=== PATIENT | female | born 1935 | race Hispanic/Latino ===

== ENCOUNTER → 2018-04-21 | Outpatient (CLI) | payer OTHER, MEDICARE | END | disposition home or self-care (01) | LOC: OIH 10:56 | PROVIDERS: ATTEND Internal Medicine | DX: I70.0 Atherosclerosis of aorta (principal); I10 Essential (primary) hypertension; I71.4 Abdominal aortic aneurysm, without rupture; J84.10 Pulmonary fibrosis, unspecified; E27.0 Other adrenocortical overactivity; D86.0 Sarcoidosis of lung | CPT/HCPCS: 71046 ==

== ENCOUNTER → 2018-09-23 | Outpatient (CLI) | payer OTHER, MEDICARE | END | disposition home or self-care (01) | LOC: OIH 09:21 | PROVIDERS: ATTEND Internal Medicine | DX: R05 Cough (principal); I70.0 Atherosclerosis of aorta; M47.815 Spondylosis without myelopathy or radiculopathy, thoracolumbar region | CPT/HCPCS: 71046 ==

== ENCOUNTER → 2019-02-12 | Outpatient (CLI) | payer OTHER, MEDICARE | END | disposition home or self-care (01) | LOC: RAH 08:36 | PROVIDERS: ATTEND Internal Medicine | DX: K59.00 Constipation, unspecified (principal); I70.0 Atherosclerosis of aorta; K57.90 Diverticulosis of intestine, part unspecified, without perforation or abscess without bleeding; M41.50 Other secondary scoliosis, site unspecified | CPT/HCPCS: 74176 ==

== ENCOUNTER → 2019-02-17 | Outpatient (CLI) | payer OTHER, MEDICARE | END | disposition home or self-care (01) | LOC: RAH 09:08 | PROVIDERS: ATTEND Internal Medicine | DX: E27.9 Disorder of adrenal gland, unspecified (principal) | CPT/HCPCS: 76856 ==

== ENCOUNTER → 2019-06-12 | Outpatient (CLI) | payer OTHER, MEDICARE | END | disposition home or self-care (01) | LOC: OIH 09:06 | PROVIDERS: ATTEND Internal Medicine | DX: I10 Essential (primary) hypertension (principal); M47.814 Spondylosis without myelopathy or radiculopathy, thoracic region; I70.0 Atherosclerosis of aorta | CPT/HCPCS: 71046 ==

== ENCOUNTER 2024-06-01 13:07 | Observation (INO) | payer OTHER, MEDICARE ==
[~2024-06-01] VITALS: Ht 154.9 cm; Wt 49.9 kg
[2024-06-01] MEDS ORDERED: METF-910 PO (13:19)
[2024-06-01] MEDS ORDERED: LOSA50TA64 PO (13:19)
[2024-06-01] MEDS ORDERED: ROSU10TA72 PO (13:19)
[2024-06-01] MEDS ORDERED: AMLO2.5T4 PO (13:19)
[2024-06-01] MEDS ORDERED: MELO-108 PO (13:19)
--- NOTE | 2024-06-01 13:21 | ERN ---
General Chief Complaint: Shortness of Breath Stated Complaint: SOB Time Seen by MD: 13:21 Source: family, EMS History of Present Illness Initial Comments 88 y/o female presents to the ED by EMS due to SOB. Per EMS pt O2 at 92% on 2L of oxygen. Family members report diarrhea but deny further associated symptoms. 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 PMHx HTN, DM, A- fib Allergies: Coded Allergies: No Known Drug Allergies (Unverified Allergy, Unknown, 06/01/24) Home Meds Reported Medications Metformin HCl (Metformin HCl ER) 500 Mg Tab.er.24h, 1 TAB PO BID for 30 Days, #60 TAB 0 Refills 06/01/24 Losartan Potassium (Losartan Potassium) 50 Mg Tablet, 1 TAB PO DAILY for 30 Days, #30 TAB 0 Refills 06/01/24 Rosuvastatin Calcium (Rosuvastatin Calcium) 10 Mg Tablet, 1 TAB PO HS for 30 Days, #30 TAB 0 Refills 06/01/24 Meloxicam (Meloxicam) 15 Mg Tablet, 1 TAB PO DAILY for 30 Days, #30 TAB 0 Refills 06/01/24 Amlodipine Besylate (Amlodipine Besylate) 2.5 Mg Tablet, 1 TAB PO DAILY for 30 Days, #30 TAB 0 Refills 06/01/24 Past Medical History Past Medical History: A-Fib, Hypertension Past Surgical History: Unknown ROS Dictation Constitutional: Negative for fever,chills, and weight loss Eyes: Negative for injury, pain,redness, and discharge ENT: Negative for injury,pain or swelling Cardiovascular: Negative for chest pain, palpitations, and edema Respiratory: Positive for shortness of breath Negative for cough, and wheezing, Abdomen/GI: Positive for diarrhea Negative for abdominal pain, nausea, vomiting, and constipation Back: Negative for injury and pain : Negative for painful urination, bleeding or discharge MS/Extremity: Negative for injury and deformity Skin: Negative for rash, and discoloration Neuro: Negative for headache, weakness, numbness, tingling, and seizure Psych: Negative for suicide ideation, homicidal ideation, and hallucinations Physical Exam Physical Exam Dictation General: awake, alert, no acute distress Head/Face: Normocephalic, atraumatic Eyes: PERRL, EOMI, normal conjunctiva ENT: oral cavity clear, oral mucosa moist Neck: Normal range of motion, supple Cardiovascular: RRR, normal S1/S2 Respiratory: CTAB, no respiratory distress, no rales or wheezes Abdomen: Soft, non-tender, non-distended, no guarding or rebound. Skin: Warm, dry, normal turgor, no rash MS/Extremity: Pulses equal, no cyanosis, neurovascular intact, FROM Neuro: COAx4, GCS 15 Results Laboratory and Microbiology Lab and Micro Result Laboratory Tests Test 06/01/24 13:22 06/01/24 13:27 06/01/24 15:12 Blood Gas Specimen Type Arterial Arterial Blood pH 7.361 (7.350-7.450) Arterial Blood Partial Pressure CO2 25 mmHg (32-45) L Arterial Blood Partial Pressure O2 92.6 mmHg (83.0-108.0) Arterial Blood HCO3 14.1 mmol/L (21.0-28.0) L Arterial Blood Oxygen Saturation 94.7 % (94.0-98.0) Arterial Blood Base Excess -9.7 mmol/L (-2.0-3.0) L Hemoglobin (Blood Gas) 12.4 g/dL (12.0-16.0) Sodium (Blood Gas) 136 MMOL/L (136-145) Bedside Potassium (Blood Gas) 3.5 MMOL/L (3.4-4.5) Bedside Chloride (Blood Gas) 106 MMOL/L (98-107) Bedside Glucose (Blood Gas) 190 MG/DL (65-95) H Bedside Ionized Calcium (Blood Gas) 1.14 MMOL/L (1.15-1.33) L Bedside Lactic Acid (Blood Gas) 4.50 MMOL/L (0.36-0.75) *H Blood Gas Temperature 37.0 CELSIUS (35.5-37.0) Blood Gas Flow-by 2.00 L/min (0.00-15.00) FiO2 28.0 % Blood Gas Specimen Comment RR 2LNC Influenza Type A Antigen Negative For Type A Influenza Type B Antigen Negative For Type B SARS-CoV-2, RNA, NAAT NEGATIVE SARS CoV-2 White Blood Count 21.5 K/uL (4.8-10.8) H Red Blood Count 4.27 MIL/uL (4.00-5.50) Hemoglobin 12.5 g/dL (12.0-16.0) Hematocrit 37.8 % (36-48) Mean Corpuscular Volume 88.5 fL (79-99) Mean Corpuscular Hemoglobin 29.3 pg (27.0-33.0) Mean Corpuscular Hemoglobin Concent 33.1 g/dL (32.0-36.0) Red Cell Distribution Width 16.0 % (11.0-15.5) H Platelet Count 339 K/uL (130-400) Mean Platelet Volume 10.6 fL (7.5-10.5) H Immature Granulocyte % (Auto) 0.6 % (0-1) Neutrophils (%) (Auto) 86.0 % (40.0-77.0) H Lymphocytes (%) (Auto) 5.8 % (21.0-51.0) L Monocytes (%) (Auto) 7.3 % (3.0-13.0) Eosinophils (%) (Auto) 0.0 % (0.0-8.0) Basophils (%) (Auto) 0.3 % (0.0-5.0) Neutrophils # (Auto) 18.5 K/uL (1.8-7.7) H Lymphocytes # (Auto) 1.2 K/uL (1.0-4.8) Monocytes # (Auto) 1.6 K/uL (0.1-1.0) H Eosinophils # (Auto) 0.01 K/uL (0.00-0.70) Basophils # (Auto) 0.06 K/uL (0.00-0.20) Absolute Immature Granulocyte (auto 0.13 K/uL (0-1) Nucleated Red Blood Cells 0.0 % (0.0-0.19) White Cell Morphology Comment See comments Prothrombin Time 11.3 SEC (9.6-11.6) Prothromb Time International Ratio 1.01 (0.85-1.15) Activated Partial Thromboplast Time 23.8 SEC (26.3-35.5) L Sodium Level 138 mmol/L (136-145) Potassium Level 3.6 mmol/L (3.5-5.1) Chloride Level 103 mmol/L (101-111) Carbon Dioxide Level 19 mmol/L (21-32) L Blood Urea Nitrogen 23 mg/dL (7-18) H Creatinine 1.5 mg/dL (0.5-1.0) H Glomerular Filtration Rate Calc 33 mL/min (>90) Random Glucose 195 mg/dL (70-105) H Total Calcium 8.6 mg/dL (8.5-10.1) Magnesium Level 1.10 mg/dL (1.80-2.40) L Total Bilirubin 0.2 mg/dL (0.2-1.0) Aspartate Amino Transf (AST/SGOT) 19 U/L (10-37) Alanine Aminotransferase (ALT/SGPT) 16 U/L (12-78) Alkaline Phosphatase 101 U/L (50-136) Total Creatine Kinase 59 U/L (21-232) Troponin I High Sensitivity 7 ng/L (4-50) B-Type Natriuretic Peptide 53 pg/mL (0-100) Total Protein 7.0 g/dL (6.0-8.3) Albumin 3.0 g/dL (3.5-5.0) L Triglycerides Level 94 mg/dL (30-200) Cholesterol Level 126 mg/dL (<200) LDL Cholesterol 58 mg/dL (0-99) HDL Cholesterol 59 mg/dL (35-85) Urine Color LIGHT-YELLOW (YELLOW) Urine Appearance CLOUDY (CLEAR) H Urine pH 5.5 (5.0-8.0) Urine Specific [place] 1.007 (1.001-1.031) Urine Protein 20 mg/dL (NEGATIVE) H Urine Glucose (UA) NEGATIVE mg/dL (NEGATIVE) Urine Ketones NEGATIVE mg/dL (NEGATIVE) Urine Occult Blood NEGATIVE (NEGATIVE) Urine Nitrate NEGATIVE (NEGATIVE) Urine Bilirubin NEGATIVE mg/dL (NEGATIVE) Urine Urobilinogen 0.2 mg/dL (0.2-1.0) Urine Leukocyte Esterase NEGATIVE [place]/uL Urine RBC 0-1 /HPF (0-1) Urine WBC 2-5 /HPF (0-1) H Urine Squamous Epithelial Cells RARE /HPF (0-2) Urine Bacteria RARE /HPF (None Seen) Urine Hyaline Casts 2-5 /LPF (0-1 /LPF) H Labs Reviewed?: Yes EKG/XRAY/US/CT/MRI X-RAY Comment REASON: sob ORDERING PHYSICIAN: BRAD COLLINS MD PROCEDURE: CXR1VW - CHEST 1VW CHEST 1VW REASON: sob COMPARISON: 06/12/2019 FINDINGS: Single view of the chest was obtained. Lungs are clear. Heart size is normal. There is no pulmonary vascular congestion. Mediastinum and bony thorax appear unremarkable. IMPRESSION: 1. Normal single view chest x-ray. DICTATED BY: THONY MARTIN MD DATE: 06/01/24 1351 MDM MDM: Differential diagnosis: UTI, viral gastroenteritis, fluid retention, hypoxia Rationale: 88 y/o female presents to the ED by EMS due to SOB. Per EMS pt O2 at 92% on 2L of oxygen. Family members report diarrhea but deny further associated symptoms. 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 PMHx HTN, DM, A-fib Per physical examination patient's abdomen is soft nontender, she appears to be in no acute distress. Patient on 3 L of O2 satting at 97%. Labs obtained indicate elevated WBC at 21.5, BUN and creatinine elevated with no previous labs for comparison, and low magnesium of 1.1. Patient was administered IV fluids and IV magnesium. UA negative for urinary tract infection. Influenza and COVID negative. Chest x-ray normal with no acute abnormalities noted. Family was educated on findings and diagnosis. Case discussed with Dr. Hughes who accepted admission. Previous outside records reviewed: Old ER visits. Risk of complication and/or morbidity or mortality of patient management: None Medications-Per medication reconciliation Need for hospitalization: Patient does meet criteria for hospitalization. Need for emergency major/minor surgery: No There are no social concerns with this patient. Prescription drug management Prescriptions will include symptomatic care Patient's prior external medical records from other ER visits were reviewed by me as indicated. Prior testing and results from previous visits were reviewed. Prior tests were taken into account with medical decision making and resource utilization, independent historian/historians were used to obtain complete medical history. I independently interpreted the test that were performed, results were reviewed by me and considered findings on radiology if ordered. Medical management and examination interpretation discussions were had by me with other qualified healthcare professionals as indicated for the patient's care. ED Course Orders Procedure Category Date Status Time Cbc With Differential LAB 06/01/24 Complete 13:13 Prothrombin Time With LAB 06/01/24 Complete INR 13:13 B-Type Natriuretic LAB 06/01/24 Complete Peptide 13:13 Lipid Panel LAB 06/01/24 Complete 13:13 Chest 1vw RAD 06/01/24 Resulted 13:13 12 Lead Ekg Tracing- EKG 06/01/24 Complete Technical 13:13 Magnesium LAB 06/01/24 Complete 13:13 Creatine Kinase, Total LAB 06/01/24 Complete 13:13 Troponin I High LAB 06/01/24 Complete Sensitivity 13:13 Urinalysis Profile LAB 06/01/24 Complete 13:13 Partial LAB 06/01/24 Complete Thromboplastin Time 13:13 Comprehensive LAB 06/01/24 Complete Metabolic Panel 13:13 Covid Rna Naat LAB 06/01/24 Complete 13:13 Influenza Type A & B, LAB 06/01/24 Complete Rapid 13:13 Arterial Blood Gas + RT 06/01/24 Transmitted 13:18 Arterial Blood Gas LAB 06/01/24 Complete Arterial + 13:22 0.9%Nacl 1000ml (Ns PHA 06/01/24 Complete 1000ml) 15:30 Magnesium 2gm Premix PHA 06/01/24 Complete 50ml (Magnesium 2gm 15:50 Magnesium 2gm Premix PHA 06/01/24 Complete 50ml (Magnesium 2gm 15:52 Current Medications Medications (Trade) Dose Ordered Sig/Aleksandr Route PRN Reason Start Time Stop Time Status Last Admin Dose Admin Magnesium Sulfate 50 ml @ 0 mls/hr PROTOCOL STAT IV 06/01/24 15:50 06/01/24 15:58 DC Magnesium Sulfate 50 ml @ 0 mls/hr PROTOCOL STAT IV 06/01/24 15:52 06/01/24 15:58 DC 06/01/24 16:07 Sodium Chloride 1,000 ml @ 0 mls/hr ONCE ONCE IV 06/01/24 15:30 06/01/24 15:31 DC 06/01/24 16:06 Vital Signs Date Time Temp Pulse Resp B/P (MAP) Pulse Ox O2 Delivery O2 Flow Rate FiO2 06/01/24 16:00 97.5 86 18 117/55 96 Nasal Cannula* 2 06/01/24 15:00 97.3 83 18 134/62 93 Nasal Cannula* 2 06/01/24 13:32 95 18 100/66 96 Nasal Cannula* 2 06/01/24 13:09 97.3 93 20 86/63 93 Nonrebreathing Mask 15.0 Critical Care Note Critical Time: 30 minutes Comments Critical Care Procedure Note Authorized and Performed by: me Total critical care time: Approximately 36 minutes Due to a high probability of clinically significant, life threatening deterioration, the patient required my highest level of preparedness to intervene emergently and I personally spent this critical care time directly and personally managing the patient. This critical care time included obtaining a history; examining the patient; pulse oximetry; ordering and review of studies; arranging urgent treatment with development of a management plan; evaluation of patient's response to treatment; frequent reassessment; and, discussions with other providers. This critical care time was performed to assess and manage the high probability of imminent, life-threatening deterioration that could result in multi-organ failure. It was exclusive of separately billable procedures and treating other patients and teaching time. Please see MDM section and the rest of the note for further information on patient assessment and treatment. DX & DISP Disposition: Inpatient Decision to Admit Date: Jun 01, 2024 Departure Impression: Primary Impression: Leukocytosis Additional Impression: LYSSA (acute kidney injury) Condition: Stable Referrals: MAGDY HUGHES MD (PCP) I participated in the following activities of this patient's care: For this patient encounter, I reviewed the PA or PEOPLESOFT ADMINISTRATOR documentation, treatment plan, and medical decision making. I did not have [id number] time with this patient. I will sign as the reviewing DrEric And agree with the treatment plan and disposition. JOSIE WILL Jun 01, 2024 13:21
[2024-06-01 13:24] LABS: ABG BASE EXCESS -9.7 mmol/L (-2.0-3.0); ABG HCO3 14.1 mmol/L (21.0-28.0); ABG OXYGEN SATURATION 94.7 % (94.0-98.0); ABG PCO2 25 mmHg (32-45); ABG PH 7.361 (7.350-7.450); CARBON MONOXIDE 0.5 % (0.5-1.5); DEVICE COMMENT RR 2LNC; HHb 5.3; PO2, ARTERIAL BG 92.6 mmHg (83.0-108.0)
--- NOTE | 2024-06-01 13:33 | NUR ---
PT WAS BORN WITH PROFOUND HEARING LOSS, UNABLE TO HEAR/SPEAK. PT WAS NEVER TAUGHT TO READ OR WRITE AND HAS NO OFFICIAL SIGN LANGUAGE SKILLS. PT COMMUNICATES THROUGH FAMILIAL SIGN LANGUAGE. PER FAMILY, PT PRESENTS AT BASELINE MENTATION AND APPEARS BRISK TO RESPONSE, USUAL.
[2024-06-01 13:35] LABS: BASOPHILS # (AUTO) 0.06 K/uL (0.00-0.20); BASOPHILS % (AUTO) 0.3 % (0.0-5.0); EOSINOPHILS # (AUTO) 0.01 K/uL (0.00-0.70); HEMATOCRIT 37.8 % (36-48); IMMATURE GRANULOCYTE ABSOLUTE 0.13 K/uL (0-1); LYMPHOCYTES # (AUTO) 1.2 K/uL (1.0-4.8); LYMPHOCYTES % (AUTO) 5.8 % (21.0-51.0); MEAN CORPUSCULAR HEMOGLOBIN 29.3 pg (27.0-33.0); MEAN CORPUSCULAR HGB CONC 33.1 g/dL (32.0-36.0); MEAN CORPUSCULAR VOLUME 88.5 fL (79-99); MONOCYTES # (AUTO) 1.6 K/uL (0.1-1.0); MONOCYTES % (AUTO) 7.3 % (3.0-13.0); NEUTROPHILS # (AUTO) 18.5 K/uL (1.8-7.7); PLATELET COUNT (AUTO) 339 K/uL (130-400); RED BLOOD CELL COUNT(AUTO) 4.27 MIL/uL (4.00-5.50); WHITE BLOOD COUNT (AUTO) 21.5 K/uL (4.8-10.8)
--- NOTE | 2024-06-01 13:56 | HMCIMG ---
CHEST 1VW REASON: sob COMPARISON: 06/12/2019 FINDINGS: Single view of the chest was obtained. Lungs are clear. Heart size is normal. There is no pulmonary vascular congestion. Mediastinum and bony thorax appear unremarkable. IMPRESSION: 1. Normal single view chest x-ray.
--- NOTE | 2024-06-01 13:58 | EKG ---
[facility] Test Date: 2024-06-01 Test Time: 13:54:09 Pat Name: JHOAN ESTRELLA Department: [facility] Room: ED Gender: F Dye Jig Operator: [id number] : 1935 Requested By: BRAD COLLINS Order Number: [id number] Reading MD: Rene Covarrubias Measurements Intervals [place] Rate: 73 P: 0 AL: 0 QRS: -16 QRSD: 115 T: 29 QT: 471 QTc: 520 Interpretive Statements NSR Artifact in lead(s) Nonspecific intraventricular conduction delay Abnormal T, consider ischemia, diffuse leads ST elevation, consider inferior injury Prolonged QT interval No previous ECG available for comparison Electronically Signed On 06-02-2024 06:57:12 WELFARE VISITOR by Rene Covarrubias Please click the below link to view image of tracing.
[2024-06-01 14:06] LABS: B-TYPE NATRIURETIC PEPTIDE 53 pg/mL (0-100)
[2024-06-01 14:10] LABS: SARS-CoV-2, RNA, NAAT NEGATIVE SARS CoV-2 (NEGATIVE)
[2024-06-01 14:15] LABS: INFLUENZA TYPE A Negative For Type A (NEGATIVE); INFLUENZA TYPE B Negative For Type B (NEGATIVE)
[2024-06-01 14:17] LABS: INR 1.01 (0.85-1.15); PROTHROMBIN TIME 11.3 SEC (9.6-11.6)
[2024-06-01 14:18] LABS: PARTIAL THROMBOPLASTIN TIME 23.8 SEC (26.3-35.5)
[2024-06-01 14:45] LABS: BILIRUBIN,TOTAL 0.2 mg/dL (0.2-1.0); CREATININE 1.5 mg/dL (0.5-1.0); MAGNESIUM 1.1 mg/dL (1.80-2.40); POTASSIUM 3.6 mmol/L (3.5-5.1)
[2024-06-01] MEDS ORDERED: MAGNESIUM 2GM PREMIX 50ML 50 ML IV STA (15:50)
[2024-06-01 15:51] LABS: ADD UA MICROSCOPIC YES; APPEARANCE,URINE CLOUDY (CLEAR); BILIRUBIN,URINE NEGATIVE (NEGATIVE); COLOR,URINE LIGHT-YELLOW (YELLOW); GLUCOSE, URINE (UA) NEGATIVE (NEGATIVE); KETONES,URINE NEGATIVE (NEGATIVE); LEUKOCYTE ESTERASE ,URINE NEGATIVE Leu/uL (NEGATIVE); NITRATE,URINE NEGATIVE (NEGATIVE); OCCULT BLOOD,URINE NEGATIVE (NEGATIVE); PH,URINE 5.5 (5.0-8.0); PROTEIN,URINE 20 mg/dL (NEGATIVE); UROBILINOGEN,URINE 0.2 mg/dL (0.2-1.0)
[2024-06-01 15:58] LABS: BACTERIA,URINE RARE /HPF (None Seen); MUCUS,URINE RARE LPF (None Seen); RBC,URINE 0-1 /HPF (0-1); SQUAMOUS EPITHELIAL CELL,UR RARE /HPF (0-2)
[2024-06-01] MEDS: 0.9%NACL 1000ML 1,000 ML IV ONE (16:06)
[2024-06-01] MEDS: MAGNESIUM 2GM PREMIX 50ML 50 ML IV STA (16:07)
[2024-06-01] MEDS: AZITHROMYCIN 500MG+NS 250ML 250 ML IVPB SCH (17:57)
[2024-06-01] MEDS: cefTRIAXone 1G VIAL IVPB SCH (17:57)
[2024-06-01] MEDS: 0.9%NACL 1000ML 1,000 ML IV SCH (17:58)
[2024-06-01] MEDS ORDERED: acetaMINOPHEN 325 MG TAB PO PRN (18:00)
[2024-06-01] MEDS ORDERED: IpraTROPium/alBUTERol SULFATE 3 ML SOLUTION IH PRN (18:00)
[2024-06-01] MEDS: IpraTROPium/alBUTERol SULFATE 3 ML SOLUTION IH SCH (19:08)
[2024-06-01 19:11] VITALS: PULSE 67; RESP 16
[2024-06-01 19:12] VITALS: PULSE 67; RESP 16; O2SAT 100
--- NOTE | 2024-06-01 22:06 | HP ---
HISTORY AND PHYSICAL NOTE DATE OF CONSULTATION: 06/01/24 REASON FOR CONSULTATION: complaints of weakness HISTORY OF PRESENT ILLNESS: 88 y/o female presents to the ED by EMS due to SOB. Per EMS pt O2 at 92% on 2L of oxygen. Family members report diarrhea but deny further associated symptoms. 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 PMHx HTN, DM, A- fib Allergies: Coded Allergies: No Known Drug Allergies (Unverified Allergy, Unknown, 06/01/24) Home Meds Reported Medications Metformin HCl (Metformin HCl ER) 500 Mg Tab.er.24h, 1 TAB PO BID for 30 Days, #60 TAB 0 Refills 06/01/24 Losartan Potassium (Losartan Potassium) 50 Mg Tablet, 1 TAB PO DAILY for 30 Days, #30 TAB 0 Refills 06/01/24 Rosuvastatin Calcium (Rosuvastatin Calcium) 10 Mg Tablet, 1 TAB PO HS for 30 Days, #30 TAB 0 Refills 06/01/24 Meloxicam (Meloxicam) 15 Mg Tablet, 1 TAB PO DAILY for 30 Days, #30 TAB 0 Refills 06/01/24 Amlodipine Besylate (Amlodipine Besylate) 2.5 Mg Tablet, 1 TAB PO DAILY for 30 Days, #30 TAB 0 Refills 06/01/24 Past History Past Medical History Past Medical History: A-Fib, Hypertension Past Surgical History: Unknown Review of Systems ROS Dictation Constitutional: Negative for fever,chills, and weight loss Eyes: Negative for injury, pain,redness, and discharge ENT: Negative for injury,pain or swelling Cardiovascular: Negative for chest pain, palpitations, and edema Respiratory: Positive for shortness of breath Negative for cough, and wheezing, Abdomen/GI: Positive for diarrhea Negative for abdominal pain, nausea, vomiting, and constipation Back: Negative for injury and pain : Negative for painful urination, bleeding or discharge MS/Extremity: Negative for injury and deformity Skin: Negative for rash, and discoloration Neuro: Negative for headache, weakness, numbness, tingling, and seizure Psych: Negative for suicide ideation, homicidal ideation, and hallucinations ALLERGIES: Coded Allergies: No Known Drug Allergies (Unverified Allergy, Unknown, 06/01/24) HOME MEDS: Reported Medications Metformin HCl (Metformin HCl ER) 500 Mg Tab.er.24h, 1 TAB PO BID for 30 Days, #60 TAB 0 Refills 06/01/24 Losartan Potassium (Losartan Potassium) 50 Mg Tablet, 1 TAB PO DAILY for 30 Days, #30 TAB 0 Refills 06/01/24 Rosuvastatin Calcium (Rosuvastatin Calcium) 10 Mg Tablet, 1 TAB PO HS for 30 Days, #30 TAB 0 Refills 06/01/24 Meloxicam (Meloxicam) 15 Mg Tablet, 1 TAB PO DAILY for 30 Days, #30 TAB 0 Refills 06/01/24 Amlodipine Besylate (Amlodipine Besylate) 2.5 Mg Tablet, 1 TAB PO DAILY for 30 Days, #30 TAB 0 Refills 06/01/24 INPATIENT MEDS: Current Medications Medications Dose Ordered Sig/Aleksandr Start Time Stop Time Status Last Admin Ceftriaxone Sodium 1 gm Q24H 06/01/24 18:00 06/11/24 17:59 06/01/24 17:57 Azithromycin 250 ml @ 250 mls/hr Q24H 06/01/24 18:00 06/11/24 17:59 06/01/24 17:57 Enoxaparin Sodium 30 mg DAILY 06/02/24 09:00 07/02/24 08:59 Sodium Chloride 1,000 ml @ 75 mls/hr [id number] 06/01/24 18:00 07/01/24 17:59 06/01/24 17:58 Acetaminophen 650 mg Q6H PRN 06/01/24 18:00 07/01/24 17:59 Albuterol 1 udvial [id number] 06/01/24 18:00 07/01/24 17:59 06/01/24 19:08 Albuterol 1 udvial Q4HPRN PRN 06/01/24 18:00 07/01/24 17:59 VITAL SIGNS Vital Signs Date Time Temp Pulse Resp B/P (MAP) Pulse Ox O2 Delivery O2 Flow Rate FiO2 06/01/24 20:30 97.7 62 18 116/35 97 Nasal Cannula* 2 28 06/01/24 19:12 67 16 N/Cannula Low lpm 2.0 28 06/01/24 19:11 67 16 06/01/24 18:00 97.5 69 18 130/52 97 Nasal Cannula* 2 28 06/01/24 16:00 97.5 86 18 117/55 96 Nasal Cannula* 2 28 06/01/24 15:00 97.3 83 18 134/62 93 Nasal Cannula* 2 28 06/01/24 13:32 95 18 100/66 96 Nasal Cannula* 2 28 06/01/24 13:09 97.3 93 20 86/63 93 Nonrebreathing Mask 15.0 PHYSICAL EXAM Physical Exam Physical Exam Physical Exam Dictation General: awake, alert, no acute distress Head/Face: Normocephalic, atraumatic Eyes: PERRL, EOMI, normal conjunctiva ENT: oral cavity clear, oral mucosa moist Neck: Normal range of motion, supple Cardiovascular: RRR, normal S1/S2 Respiratory: CTAB, no respiratory distress, no rales or wheezes Abdomen: Soft, non-tender, non-distended, no guarding or rebound. Skin: Warm, dry, normal turgor, no rash MS/Extremity: Pulses equal, no cyanosis, neurovascular intact, FROM Neuro: COAx4, GCS 15 LABORATORY RESULTS Laboratory Tests 06/01/24 13:22: Blood Gas Specimen Type Arterial, Arterial Blood pH 7.361, Arterial Blood Partial Pressure CO2 25, Arterial Blood Partial Pressure O2 92.6, Arterial Blood HCO3 14.1, Arterial Blood Oxygen Saturation 94.7, Arterial Blood Base Excess - 9.7, Hemoglobin (Blood Gas) 12.4, Sodium (Blood Gas) 136, Bedside Potassium (Blood Gas) 3.5, Bedside Chloride (Blood Gas) 106, Bedside Glucose (Blood Gas) 190, Bedside Ionized Calcium (Blood Gas) 1.14, Bedside Lactic Acid (Blood Gas) 4.50, Blood Gas Temperature 37.0, Blood Gas Flow-by 2.00, FiO2 28.0, Blood Gas Specimen Comment RR 2LNC, Influenza Type A Antigen Negative For Type A, Influenza Type B Antigen Negative For Type B, SARS-CoV-2, RNA, NAAT NEGATIVE SARS CoV-2 06/01/24 13:27: White Blood Count 21.5, Red Blood Count 4.27, Hemoglobin 12.5, Hematocrit 37.8, Mean Corpuscular Volume 88.5, Mean Corpuscular Hemoglobin 29.3, Mean Corpuscular Hemoglobin Concent 33.1, Red Cell Distribution Width 16.0, Platelet Count 339, Mean Platelet Volume 10.6, Immature Granulocyte % (Auto) 0.6, Neutrophils (%) (Auto) 86.0, Lymphocytes (%) (Auto) 5.8, Monocytes (%) (Auto) 7.3, Eosinophils (%) (Auto) 0.0, Basophils (%) (Auto) 0.3, Neutrophils # (Auto) 18.5, Lymphocytes # (Auto) 1.2, Monocytes # (Auto) 1.6, Eosinophils # (Auto) 0.01, Basophils # (Auto) 0.06, Absolute Immature Granulocyte (auto 0.13, Nucleated Red Blood Cells 0.0, White Cell Morphology Comment See comments, Prothrombin Time 11.3, Prothr omb Time International Ratio 1.01, Activated Partial Thromboplast Time 23.8, Sodium Level 138, Potassium Level 3.6, Chloride Level 103, Carbon Dioxide Level 19, Blood Urea Nitrogen 23, Creatinine 1.5, Glomerular Filtration Rate Calc 33, Random Glucose 195, Total Calcium 8.6, Magnesium Level 1.10, Total Bilirubin 0.2, Aspartate Amino Transf (AST/SGOT) 19, Alanine Aminotransferase (ALT/SGPT) 16, Alkaline Phosphatase 101, Total Creatine Kinase 59, Troponin I High Sensitivity 7, B-Type Natriuretic Peptide 53, Total Protein 7.0, Albumin 3.0, Triglycerides Level 94, Cholesterol Level 126, LDL Cholesterol 58, HDL Cholesterol 59 06/01/24 15:12: Urine Color LIGHT-YELLOW, Urine Appearance CLOUDY, Urine pH 5.5, Urine Specific [place] 1.007, Urine Protein 20, Urine Glucose (UA) NEGATIVE, Urine Ketones NEGATIVE, Urine Occult Blood NEGATIVE, Urine Nitrate NEGATIVE, Urine Bilirubin NEGATIVE, Urine Urobilinogen 0.2, Urine Leukocyte Esterase NEGATIVE, Urine RBC 0-1, Urine WBC 2-5, Urine Squamous Epithelial Cells RARE, Urine Bacteria RARE, Urine Hyaline Casts 2-5 PROBLEM LIST: (1) Acute bronchitis ICD Codes: J20.9 - Acute bronchitis, unspecified (2) Dehydration ICD Codes: E86.0 - Dehydration (3) Leukocytosis ICD Codes: D72.829 - Elevated white blood cell count, unspecified (4) LYSSA (acute kidney injury) ICD Codes: N17.9 - Acute kidney failure, unspecified PLAN intravenous fluids to hydrate IV antibiotics MAGDY HUGHES MD Jun 01, 2024 22:06
[2024-06-01 23:46] VITALS: PULSE 68; RESP 16
[2024-06-02 06:43] VITALS: PULSE 65; PULSE 95; RESP 16; O2SAT 99
[2024-06-02 07:21] LABS: BASOPHILS # (AUTO) 0.02 K/uL (0.00-0.20); BASOPHILS % (AUTO) 0.3 % (0.0-5.0); EOSINOPHILS # (AUTO) 0.04 K/uL (0.00-0.70); EOSINOPHILS % (AUTO) 0.6 % (0.0-8.0); HEMATOCRIT 35.8 % (36-48); IMMATURE GRANULOCYTE ABSOLUTE 0.01 K/uL (0-1); LYMPHOCYTES # (AUTO) 2.3 K/uL (1.0-4.8); LYMPHOCYTES % (AUTO) 32.1 % (21.0-51.0); MEAN CORPUSCULAR HEMOGLOBIN 28.6 pg (27.0-33.0); MEAN CORPUSCULAR HGB CONC 31.8 g/dL (32.0-36.0); MEAN CORPUSCULAR VOLUME 89.7 fL (79-99); MONOCYTES # (AUTO) 0.6 K/uL (0.1-1.0); MONOCYTES % (AUTO) 8.9 % (3.0-13.0); NEUTROPHILS # (AUTO) 4.1 K/uL (1.8-7.7); PLATELET COUNT (AUTO) 291 K/uL (130-400); RED BLOOD CELL COUNT(AUTO) 3.99 MIL/uL (4.00-5.50); RED CELL DISTRIBUTION WIDTH 16.1 % (11.0-15.5)
[2024-06-02 07:39] LABS: CREATININE 0.7 mg/dL (0.5-1.0)
[2024-06-02 07:41] LABS: POTASSIUM 2.9 mmol/L (3.5-5.1)
--- NOTE | 2024-06-02 07:50 | NUR ---
nurse note attempted to call Dr. Guzman to report critical potassium of 2.9, no answer. sent message, awaiting further orders for replacement.
[2024-06-02 08:00] VITALS: BP 126/65; PULSE 71; RESP 19; O2SAT 98
[2024-06-02] MEDS ORDERED: PoTASSium chl 10% ELIXIR 20MEQ 20 MEQ/15 ML UDCUP PO PRN (08:30)
[2024-06-02] MEDS ORDERED: PoTASSium chloRIDE 20MEQ ER 20 MEQ ERTAB PO PRN (08:30)
[2024-06-02] MEDS: ENOXAPARIN SODIUM 30 MG/0.3 ML SQ SCH (09:31)
[2024-06-02] MEDS: PoTASSium chloRIDE 20MEQ/100ML 100 ML IV PRN (09:31)
[2024-06-02 11:23] VITALS: PULSE 71; RESP 16
--- NOTE | 2024-06-02 11:40 | NUR ---
[facility] SW spoke to pt's brother Reggie [phone] and his Le Connor [phone] who over see pt's care. Pt never or had kids. Brother is only living relative. Pt lives in her home alone. Pt attend [facility] daily. Has provider services 17hrs a week to assist with all her ADLS, home management, meal prep and transportation. Pt uses no DME or HH services. PCP is Dr Guzman and uses [facility] for rx. Possible dc today, brother states they will take pt home with current services Addendum: 06/02/24 at 1158 by NASIR ABURTO Amended: Links added.
[2024-06-02 11:52] VITALS: BP 120/81; PULSE 72; RESP 17
[2024-06-02] MEDS: ondanSETRON 4MG INJ IVP PRN (14:26)
[2024-06-02 15:47] VITALS: BP 120/62; PULSE 68; RESP 17; TEMP 98.4
--- NOTE | 2024-06-02 16:03 | NUR ---
discharge gave patient and brother printed discharge paperwork, advised family to call to schedule follow up appointment with primary care provider's office, per Dr. Guzman's discharge order, patient tolerating oral, going home on full liquid diet. educated patient and family regarding follow up visit, diet, activity, medications, and signs and symptoms to report/return to ER. answered patient/family questions, patient/family understood.
--- NOTE | 2024-06-05 22:24 | DS ---
Discharge Summary DIAGNOSE(S): [Acute gastroenteritis Dehydration] HOSPITAL COURSE SUMMARY: [Patient did well with hydration and was discharged] BOOK OR SCRIPT EDITOR(S): [] PROCEDURE(S)/TREATMENT(S): [] PROBLEM(S): [] FOLLOW-UP TEST(S): [None] DISCHARGE INSTRUCTIONS: [Follow up with the PCP in 2 days] Home Meds Reported Medications Metformin HCl (Metformin HCl ER) 500 Mg Tab.er.24h, 1 TAB PO BID for 30 Days, #60 TAB 0 Refills 06/01/24 Losartan Potassium (Losartan Potassium) 50 Mg Tablet, 1 TAB PO DAILY for 30 Days, #30 TAB 0 Refills 06/01/24 Rosuvastatin Calcium (Rosuvastatin Calcium) 10 Mg Tablet, 1 TAB PO HS for 30 Days, #30 TAB 0 Refills 06/01/24 Meloxicam (Meloxicam) 15 Mg Tablet, 1 TAB PO DAILY for 30 Days, #30 TAB 0 Refills 06/01/24 Amlodipine Besylate (Amlodipine Besylate) 2.5 Mg Tablet, 1 TAB PO DAILY for 30 Days, #30 TAB 0 Refills 06/01/24 MAGDY HUGHES MD Jun 05, 2024 22:24
== END 2024-06-02 16:03 | disposition home or self-care (01) ==
LOC: EDH 13:07 → EDHIP 17:38
PROVIDERS: ADMIT Internal Medicine; ATTEND Internal Medicine
DX: J20.9 Acute bronchitis, unspecified (principal); Z20.822 Contact with and (suspected) exposure to COVID-19; E86.0 Dehydration; D72.829 Elevated white blood cell count, unspecified; N17.9 Acute kidney failure, unspecified; I10 Essential (primary) hypertension; I48.91 Unspecified atrial fibrillation; H91.3 Deaf nonspeaking, not elsewhere classified; E11.9 Type 2 diabetes mellitus without complications; Z79.84 Long term (current) use of oral hypoglycemic drugs; Z79.899 Other long term (current) drug therapy
CPT/HCPCS: 82435; 82947; 84132; 84295; 85018; 96365; 96366; 96367; 96368; 82550; 83735; 84484; 80061; 80053; 82803; 83880; 85025 ×2; 85610; 85730; 87804 ×2; 83605; 81001; 36415 ×2; 87635; 71045; 99291; 93005; 36600; 94640; 96372; 96375; 80048; G0378 ×22; J3475 ×2; J0696; J0456; J1650; J2405; J3480; 94664